=== PATIENT | female | born 1950 | race African-American/Black ===

== ENCOUNTER 2017-10-06 00:11 | Inpatient (IN) | payer MEDICARE, OTHER ==
[~2017-10-06] VITALS: Ht 157.5 cm; Wt 79.4 kg
[2017-10-06] VITALS (7 sets, daily range): BP systolic 125–149; BP diastolic 66–69
[2017-10-06] MEDS ORDERED: ACETAMINOPHEN 325MG TABLET PO STA (00:35)
[2017-10-06] MEDS ORDERED: SODIUM CHLORIDE 0.9% 1,000 ML IV ONE (00:35)
[2017-10-06] MEDS ORDERED: ONDANSETRON HCL 4MG/2ML VIAL IV STA (00:35)
[2017-10-06] MEDS ORDERED: PIPERACILLIN/TAZ 3.375G PREMIX 50 ML IV ONE (00:45)
[2017-10-06] MEDS ORDERED: SODIUM CHLORIDE 0.9% 1000ML BAG (SEPSIS BOLUS) IV ONE (00:45)
[2017-10-06] MEDS ORDERED: VANCOMYCIN 1 G PREMIX 200 ML IV ONE (00:45)
[2017-10-06 01:16] LABS: HEMATOCRIT. 29.7 % (36.0-48.0); HEMOGLOBIN. 9.9 g/dL (12.0-16.0); MEAN CORPUSCULAR HEMOGLOBIN 30.4 pg (28.0-32.0); MEAN CORPUSCULAR VOLUME 91.6 fL (81.0-99.0); MEAN PLATELET VOLUME 8.8 fl (7.4-10.4); PLATELET 73 x1000/uL (130-400); RED BLOOD CELL COUNT 3.24 mill/uL (4.2-5.4); RED CELL DISTRIBUTION WIDTH 19.4 % (11.6-14.6)
[2017-10-06 01:20] LABS: CHLORIDE 102 mEq/L (98-107)
[2017-10-06 01:22] LABS: INR 1.2; PROTHROMBIN TIME 12.1 sec (9.4-11.6)
[2017-10-06 01:29] LABS: CARBON DIOXIDE 25 mEq/L (21-32)
[2017-10-06 01:47] LABS: PLATELET ESTIMATE DECREASED
[2017-10-06 03:47] LABS: CLARITY URINE CLEAR (CLEAR); COLOR URINE YELLOW (YELLOW); GLUCOSE URINE 2+ (NEGATIVE); KETONES URINE NEGATIVE (NEGATIVE); LEUKOCYTE ESTERASE URINE 1+ (NEGATIVE); NITRITE URINE NEGATIVE (NEGATIVE); OCCULT BLOOD URINE NEGATIVE (NEGATIVE); PROTEIN URINE 1+ (NEGATIVE); SPECIFIC GRAVITY URINE 1.019 (1.005-1.030); UROBILINOGEN URINE 0.2 E.U./dL (0.2-1.0)
[2017-10-06] MEDS ORDERED: SODIUM CHLORIDE 0.9% 1,000 ML IV SCH (04:21)
[2017-10-06] MEDS ORDERED: NITR0.4T49 SL (08:20)
[2017-10-06] MEDS ORDERED: ONDA4TAB11 PO (08:20)
[2017-10-06] MEDS ORDERED: DOCU-138 PO (08:20)
[2017-10-06] MEDS ORDERED: LANTUSUD SUBCUT (08:20)
[2017-10-06] MEDS ORDERED: OMEP20CA10 PO (08:20)
[2017-10-06] MEDS ORDERED: ESCI10TA54 PO (08:20)
[2017-10-06] MEDS ORDERED: ATOR-2 PO (08:20)
[2017-10-06] MEDS ORDERED: FLUO90CA4 PO (08:20)
[2017-10-06] MEDS ORDERED: FURO20TA4 IVP (08:20)
[2017-10-06] MEDS ORDERED: HYDR-519 PO (09:52)
[2017-10-06] MEDS ORDERED: DEXT 5%/0.45% NACL 1000ML 1,000 ML IV SCH (12:23)
[2017-10-06] MEDS ORDERED: ONDANSETRON HCL 4MG/2ML VIAL IV PRN (12:30)
[2017-10-06] MEDS ORDERED: DIPHENHYDRAMINE 50MG/ML VIAL IV PRN (12:30)
[2017-10-06] MEDS ORDERED: HYDROCODONE/ACETAMINOPHEN 5/325MG TABLET PO PRN (12:30)
[2017-10-06] MEDS ORDERED: CLONIDINE 0.1MG TABLET PO PRN (12:30)
[2017-10-06] MEDS ORDERED: MORPHINE SULFATE 2 MG/ML CPJ (NOT FOR IM USE) IV PRN (12:30)
[2017-10-06] MEDS ORDERED: ACETAMINOPHEN 325MG TABLET PO PRN (12:30)
[2017-10-06] MEDS ORDERED: DEXTROSE 50% WATER 50ML SYRINGE IV PRN (12:45)
[2017-10-06] MEDS ORDERED: MORPHINE SULFATE 4 MG/ML CPJ (NOT FOR IM USE) IV PRN (12:53)
[2017-10-06] MEDS: INSULIN LISPRO 100 UNITS/ML SUBCUT SCH ×2 (13:19→17:42)
[2017-10-06] MEDS ORDERED: MORPHINE SULFATE 10 MG/ML CPJ IV PRN (13:21)
[2017-10-06] MEDS ORDERED: PIPERACILLIN/TAZ 3.375G PREMIX 50 ML IV SCH (14:00)
[2017-10-06] MEDS ORDERED: BLOOD SUGAR DIAGNOSTIC STRIP TEST SCH (17:20)
[2017-10-06] MEDS ORDERED: VANCOMYCIN 750 MG PREMIX 150 ML IV SCH (18:00)
== END 2017-10-06 22:00 | disposition short-term general hospital (02) | DRG 871 ==
LOC: ER 00:11 → 6WST 04:20 → EDBEDREQ 04:22 → EDBEDREQTM 04:22 → ENRESERV 05:08
PROVIDERS: ADMIT Hospitalist; ATTEND Hospitalist
DX: A41.9 Sepsis, unspecified organism (principal); G93.40 Encephalopathy, unspecified; R64 Cachexia; C41.9 Malignant neoplasm of bone and articular cartilage, unspecified; E11.65 Type 2 diabetes mellitus with hyperglycemia; R07.9 Chest pain, unspecified; D64.9 Anemia, unspecified; I10 Essential (primary) hypertension; Z68.32 Body mass index [BMI] 32.0-32.9, adult; Z53.09 Procedure and treatment not carried out because of other contraindication
CPT/HCPCS: 36415; 70450; 71010; 80053; 81001; 82962; 83605; 85025; 85610; 87040; 87086; 93005; 96361; 96365; 96368; 96375; 99291; J1815; J2270; J2405; J2543; J3370; J7030